=== PATIENT | female | born 1995 | race African-American/Black ===

== ENCOUNTER 2018-04-30 09:14 | Emergency (ER) | payer OTHER ==
[~2018-04-30] VITALS: Ht 175.3 cm; Wt 63.5 kg
[2018-04-30 12:41] VITALS: BP 138/92
== END 2018-04-30 12:42 | disposition home or self-care (01) ==
LOC: ER 09:14
DX: O26.892 Other specified pregnancy related conditions, second trimester (principal); Z3A.18 18 weeks gestation of pregnancy; R10.9 Unspecified abdominal pain